=== PATIENT | male | born 1950 | race Caucasian/White ===

== ENCOUNTER 2017-08-31 13:05 | Outpatient (RCR) | payer OTHER ==
[2017-08-31 15:20] LABS: BASOPHILS % (AUTO) 1 % (0-10); EOSINOPHILS # (AUTO) 0.4 10^3/uL (0.0-0.3); EOSINOPHILS % (AUTO) 8 % (0-10); HEMATOCRIT 44 % (40-54); HEMOGLOBIN 15.4 G/DL (13.3-17.7); LYMPHOCYTES # (AUTO) 1.5 X 10^3 (1.0-4.0); LYMPHOCYTES % (AUTO) 28 % (12-44); MEAN CORPUSCULAR HEMOGLOBIN 34 PG (25-34); MEAN CORPUSCULAR HGB CONC 35 G/DL (32-36); MEAN CORPUSCULAR VOLUME 95 FL (80-99); MEAN PLATELET VOLUME 9.9 FL (7.4-10.4); MONOCYTES # (AUTO) 0.8 X 10^3 (0.0-1.0); MONOCYTES % (AUTO) 14 % (0-12); NEUTROPHILS # (AUTO) 2.6 X 10^3 (1.8-7.8); NEUTROPHILS % (AUTO) 49 % (42-75); PLATELET COUNT 174 10^3/uL (130-400); RED CELL DISTRIBUTION WIDTH 11.9 % (10.0-14.5); WHITE BLOOD COUNT 5.2 10^3/uL (4.3-11.0)
[2017-08-31 15:47] LABS: ALANINE AMINOTRANSFERASE 30 U/L (0-55); ALBUMIN 4.3 GM/DL (3.2-4.5); ALKALINE PHOSPHATASE 46 U/L (40-136); BILIRUBIN,TOTAL 0.7 MG/DL (0.1-1.0); BUN/CREATININE RATIO 10; CALCIUM 9.5 MG/DL (8.5-10.1); CARBON DIOXIDE 22 MMOL/L (21-32); CHLORIDE 106 MMOL/L (98-107); CREATININE SERUM 1.09 MG/DL (0.60-1.30); GFR ESTIMATED > 60; GLUCOSE 99 MG/DL (70-105); SODIUM 140 MMOL/L (135-145); TOTAL PROTEIN 7.1 GM/DL (6.4-8.2)
== END 2017-11-29 | disposition home or self-care (01) ==
LOC: ONC 13:05
PROVIDERS: ATTEND Internal Medicine Hematology & Oncology
DX: R79.0 Abnormal level of blood mineral (principal); I10 Essential (primary) hypertension; E78.5 Hyperlipidemia, unspecified; Z96.641 Presence of right artificial hip joint; Z79.82 Long term (current) use of aspirin; Z79.899 Other long term (current) drug therapy
CPT/HCPCS: 36415; 80053; 82728; 83540; 85025; 99214

== ENCOUNTER 2018-01-24 05:36 | Outpatient (CLI) | payer OTHER ==
[~2018-01-24] VITALS: Ht 175.3 cm; Wt 92.7 kg
[2018-01-24] MEDS ORDERED: BUDE10.2 IH (13:27)
[2018-01-24] MEDS ORDERED: LEVO5TAB12 PO (13:27)
[2018-01-24] MEDS ORDERED: ASPI-586 PO (13:27)
[2018-01-24] MEDS ORDERED: MULT-35 PO (13:27)
[2018-01-24] MEDS ORDERED: TRIA16.99 NS (13:27)
[2018-01-24] MEDS ORDERED: ATOR20TA49 PO (13:27)
[2018-01-24] MEDS ORDERED: LISI1TAB8 PO (13:27)
[2018-01-24] MEDS ORDERED: MONT10TA21 PO (13:27)
== END 2018-01-24 13:28 ==
LOC: PREOP 05:36
PROVIDERS: ATTEND Surgery
DX: Z01.818 Encounter for other preprocedural examination (principal); Z12.11 Encounter for screening for malignant neoplasm of colon; K21.9 Gastro-esophageal reflux disease without esophagitis

== ENCOUNTER 2018-01-31 09:48 | Day surgery (SDC) | payer OTHER ==
[~2018-01-31] VITALS: Ht 175.3 cm; Wt 92.7 kg
[2018-01-31] MEDS: NS IV 500 ML 500 ML IV PRN ×2 (09:45→12:00)
[~2018-01-31 09:48] MED LIST: ASPI-586 PO; ATOR20TA49 PO; BUDE10.2 IH; LEVO5TAB12 PO; LISI1TAB8 PO; MONT10TA21 PO; MULT-35 PO; TRIA16.99 NS
[2018-01-31] MEDS ORDERED: NS IV 500 ML 500 ML ONE ×2 (10:00→12:11)
--- NOTE | 2018-01-31 10:00 | Conscious Sedation/ASA ---
Conscious Sedation Pre-Proced Time Reviewed: 09:45 ASA Class: 2 Airway Mallampati Classification: (unga appropriate class) I. II. III, IV Lungs Heart ASA score ASA 1: a normal healthy patient ASA 2: a patient with a mild systemic disease (mid diabetes, controlled hypertension, obesity ASA 3: a patient with a severe systemic disease that limits activity (angina , COPD, prior Myocardial infarction) ASA 4: a patient with an incapacitating disease that is a constant threat to life (CHF, renal failure) ASA 5: a moribund patient not expected to survive 24 hrs. (ruptured aneurysm) ASA 6: a declared brain patient whose organs are being harvested. For emergent operations, add the letter E after the classification Grade 2 Sedation Plan: Analgesia, Amnesia, Plan communicated to team members, Discussed options with patient/fam, Discussed risks with patient/fam Note The patient is an appropriate candidate to undergo the planned procedure, sedation, and anesthesia. The patient immediately re-assessed prior to indication. JADA COLES MD Jan 31, 2018 10:00 am
--- NOTE | 2018-01-31 10:01 | Progress Note-Pre Operative ---
Pre-Operative Progress Note H&P Reviewed The H&P was reviewed, patient examined and no changes noted. Date Seen by Provider: Jan 31, 2018 Time Seen by Provider: 09:45 Date H&P Reviewed: Jan 31, 2018 Time H&P Reviewed: 09:45 Pre-Operative Diagnosis: GERD, screening colonoscopy JADA COLES MD Jan 31, 2018 10:01 am
[2018-01-31] MEDS ORDERED: ACETAMINOPHEN 325 MG TABLET PO PRN (10:15)
[2018-01-31] MEDS ORDERED: morphine INJ 10 MG/ML 1ML (SYR OR VIAL) IV PRN (10:15)
[2018-01-31] MEDS ORDERED: ONDANSETRON 4 MG/2 ML (SDV) Z0FRAN IV PRN (10:15)
[2018-01-31] MEDS ORDERED: HYDROcodone/APAP 5 MG/325 MG (LORTAB) TAB PO PRN (10:15)
[2018-01-31] MEDS ORDERED: MIDAZOLAM 2 MG/2 ML (VERSED) VIAL ONE ×6 (10:20→11:56)
[2018-01-31] MEDS ORDERED: fentaNYL INJECTION 100 MCG/2 ML AMP ONE ×2 (10:21→11:52)
[2018-01-31] MEDS ORDERED: LIDOCAINE JELLY 2% (XYLOCAINE) 5 ML TUBE ONE (10:21)
[2018-01-31] MEDS ORDERED: HURRICAINE EXT TUBE (BENZOCAINE) ONE (10:21)
[2018-01-31] MEDS ORDERED: HURRICAINE EXT TUBE (BENZOCAINE) XX PRN (10:30)
[2018-01-31] MEDS ORDERED: LIDOCAINE JELLY 2% (XYLOCAINE) 5 ML TUBE MM PRN (10:30)
[2018-01-31 10:33] VITALS: BP 122/60
[2018-01-31] MEDS: fentaNYL INJECTION 100 MCG/2 ML AMP IVP PRN ×4 (11:00→11:35)
[2018-01-31] MEDS: MIDAZOLAM 2 MG/2 ML (VERSED) VIAL IVP PRN ×6 (11:05→11:40)
--- OUTSIDE RECORDS SUMMARY | 2018-01-31 12:26 | XMS REPORT | Clinical Summary ---
Author Author [facility] Organization [facility] Address Unknown Phone Unavailable Care Team Providers Care Pipe Organ Mechanic Name Role Phone Sangita Prince MD PCP Tatiana Monge APRN Unavailable Ulises Méndez MD Unavailable Unavailable Ricco Berry MD Unavailable Paloma Jane RN Unavailable Unavailable Breonna Norwood MD Unavailable Gerald Banks MD Unavailable Parish Martinez MD Unavailable Source Comments Some departments are not documenting in the electronic medical record. If you do not see the information that you expected, contact Release of Information in the Health Information Management department at [phone] for further assistance in locating additional records.[facility] Allergies Active Allergy Reactions Severity Noted Date Comments Sulfamethoxazole-Trimetho STOMACH UPSET, SEE Low 08/31/2015 Incontinence. Last given prim COMMENTS 2013. Current Medications Prescription Sig. Disp. Refills Start End Date Status Date lisinopril/hydrochlorothi Take 1 Tab by mouth twice Active azide (ZESTORETIC) daily. 20/12.5 mg tablet 1 Tab atorvastatin (LIPITOR) 20 Take 20 mg by mouth at Active mg tablet bedtime daily. Levocetirizine 5 mg tab Take 1 Tab by mouth Active daily. montelukast (SINGULAIR) Take 10 mg by mouth every Active 10 mg tablet morning. budesonide/formoterol Inhale 2 Puffs by mouth Active (SYMBICORT) 160/4.5 mcg twice daily. Indications: HFAA takes PRN exercise inhalationIndications: induced mucus build up takes PRN exercise induced mucus build up triamcinolone (NASACORT) Apply 2 Sprays to each Active 55 mcg nasal inhaler nostril as directed daily. vitamins, multiple tablet Take 1 Tab by mouth Active daily. aspirin EC 81 mg tablet Take 1 Tab by mouth every 09/05/19 Active morning. WAIT to resume 16 until after you complete 42 days of the full strength aspirin 325mg. Active Problems Problem Noted Date Disp assoc transvrs-posterior fx of right acetabulum with routine heal 10/18 Pelvic fracture (HCC) 08/31/2015 Immunizations Name Dates Previously Given Next Due Pneumococcal Vaccine 09/03/2015 (23-Glo Adult) Social History Tobacco Use Types Packs/Day Years Used Date Never Smoker Alcohol Use Drinks/Week oz/Week Comments Yes 7 Glasses of 4.2 wine Sex Assigned at Date Recorded Not on file Last Filed Vital Signs Vital Sign Reading Time Taken Blood Pressure 152/76 08/31/2016 12:22 PM SITE LEAD Pulse 64 08/31/2016 12:22 PM SITE LEAD Temperature 37.1 C (98.8 F) 09/05/2015 2:53 PM SITE LEAD Respiratory Rate - - Oxygen Saturation 99% 09/05/2015 2:53 PM SITE LEAD Inhaled Oxygen - - Concentration Weight 89.8 kg (198 lb) 08/31/2016 12:22 PM SITE LEAD Height 167.6 cm (5' 5.98") 08/31/2016 12:22 PM SITE LEAD Body Mass Index 31.97 08/31/2016 12:22 PM SITE LEAD Plan of Treatment Health Maintenance Due Date Last Done Comments HEPATITIS C SCREENING 1949 PHYSICAL (COMPREHENSIVE) 1956 EXAM PERTUSSIS VACCINE 1960 TETANUS VACCINE 1966 COLORECTAL CANCER 1999 SCREENING SHINGLES RECOMBINANT 1999 VACCINE (1 of 2) PNEUMONIA (PCV13/PPSV23) 09/02/2016 09/03/2015 VACCINES (2 of 2 - PCV13) INFLUENZA VACCINE 04/02/2018 Implants Implanted Type Area Senior Property Accountant Device Expiration Model / Identifier Date Serial / Lot Linr Actb Pncl +4 Ntrl 60mm 40 Right: Hip JandJ:DEPUY:DEP 03/01/2017 [id number] Implanted: Qty: 1 on 09/01/2015 by CHE TERRAZAS / Gerald Banks MD NA / NA Scr Bn 3.5mm 60mm Ss Javon Plvc Right: Hip SYNTHES:SYNTHES [id number] Implanted: Qty: 1 on 09/01/2015 by Gerald Villavicencio MD NA / NA Scr Bn 3.5mm 75mm Ss Javon Plvc Right: Hip SYNTHES:SYNTHES [id number] Implanted: Qty: 1 on 09/01/2015 by Gerald Villavicencio MD NA / NA Plt 117mm Ss 3.5mm Scr 9 Hl Right: Hip SYNTHES:SYNTHES 02.100.109 Implanted: Qty: 1 on 09/01/2015 by Gerald Villavicencio MD NA / NA Scr Actb Gription 25mm 6.5mm Right: Hip JandJ:DEPUY:DEP 07/02/2025 [id number] Implanted: Qty: 1 on 09/01/2015 by CHE [employer]RAZ[employer] / Gerald Banks MD NA / NA Shl Actb 60mm Hip Sect Prct Right: Hip JandJ:DEPUY:DEP 06/01/2025 [id number] Implanted: Qty: 1 on 09/01/2015 by CHE TERRAZ[employer] / Gerald Banks MD NA / NA Elmntr Hl Drlc Pncl Hip Mrthn Right: Hip JandJ:DEPUY:DEP 06/01/2025 [id number] Implanted: Qty: 1 on 09/01/2015 by CHE TERRAZAS / Gerald Banks MD NA / NA Stem Fem Cmntls Smt Prct 6 Right: Hip JandJ:DEPUY:DEP 07/02/2025 [id number] Implanted: Qty: 1 on 09/01/2015 by CHE TERRAZ[employer] / Gerald Banks MD NA / NA Head Fem +1.5mm /14 Tpr 40mm Right: Hip JandJ:DEPUY:DEP 12/31/2019 [id number] Implanted: Qty: 1 on 09/01/2015 by CHE TERRAZAS / Gerald Banks MD NA / NA Scr Bn 3.5mm 6mm 34mm Lcp Ss T Right: Hip SYNTHES:SYNTHES .[id number] Implanted: Qty: 1 on 09/01/2015 by STAR / Gerald Banks MD NA / NA Scr Bn 3.5mm 45mm Ss Javon Plvc Right: Hip SYNTHES:SYNTHES .045 Implanted: Qty: 1 on 09/01/2015 by [employer]AR / Gerald Banks MD NA / NA Scr Bn 3.5mm 6mm 50mm Lcp Ss T Right: Hip SYNTHES:SYNTHES .050 Implanted: Qty: 1 on 09/01/2015 by [employer] / Gerald Banks MD NA / NA Results Not on filefrom Last 3 Months
--- NOTE | 2018-01-31 12:29 | Progress Note-Post Operative ---
Post-Operative Progess Note Surgeon (s)/Sample Maker Hand (s) Surgeon JADA COLES MD Sample Maker Hand: none Pre-Operative Diagnosis GERD, screening colonoscopy Post-Operative Diagnosis reflux esophagitis(class B), small HH(1.5cm), mild gastritis. chronic stage 2 ext and int hemorrhoids, moderate sigmoid diverticulosis. Procedure & Operative Findings Date of Procedure 01/31/18 Procedure Performed/Findings EGD with bx. Colonoscopy. Anesthesia Type CS Estimated Blood Loss Estimated blood loss (mL): minimal Specimens/Packing Specimens Removed GE jxn, antrum. JADA COLES MD Jan 31, 2018 12:29 pm
[2018-01-31] MEDS ORDERED: PANT40TA2 PO (12:31)
--- NOTE | 2018-01-31 12:33 | Discharge Inst-Surgical ---
D/C Lap Instructions-KIDO New, Converted, or Re-Newed RX: RX on Chart Follow Up 10 years or PRN Activity as tolerated High Fiber Diet 25g or more per day Avoid Alcohol, Caffeine, Spicy [place] and Acid foods. Drink 64 fluid oz or more of fluids per day. Symptoms to Report: Fever over 101 degree F, Nausea/Vomiting If any problems/questions: Contact your physician or go to Emergency Room JADA COLES MD Jan 31, 2018 12:33 pm
[2018-01-31 12:35] VITALS: BP 121/59
[2018-01-31 13:15] VITALS: BP 117/65
--- NOTE | 2018-01-31 14:53 | OPERATIVE REPORT ---
DATE OF SERVICE: 01/31/2018 ATTENDING PRIMARY CARE PHYSICIAN: Sangita Prince MD PREOPERATIVE DIAGNOSIS: Gastroesophageal reflux disease, screening colonoscopy. POSTOPERATIVE DIAGNOSES: Reflux esophagitis class B, small hiatal hernia approximately 1.5 cm in size. Mild gastritis. Chronic stage II external and internal hemorrhoids, moderate sigmoid diverticulosis. PROCEDURE: EGD with biopsy, colonoscopy. SURGEON: Jada Coles MD ANESTHESIA: Conscious sedation. ESTIMATED BLOOD LOSS: Minimal. FINDINGS: EGD, reflux esophagitis class B, small hiatal hernia approximately 1.5 cm in size. Mild gastritis. No ulcers, polyps or any neoplasms. Pylorus and duodenum appeared normal. Colonoscopy, chronic stage II external and internal hemorrhoids, not actively edematous nor inflamed and no bleeding. Moderate sigmoid diverticulosis, no polyps identified. DISPOSITION: The patient tolerated the procedure well. INDICATIONS: The patient is a 67-year-old male who is in need of a screening colonoscopy. His last colonoscopy was approximately 10 years ago, and he states that he cannot remember any abnormalities at this time. He does report a longstanding history of constipation and may not have a bowel movement for several days and he does have hard formed stools a lot of times. He also has a history of gastroesophageal reflux disease with epigastric burning sensation, not relieved by taking [id number] antacids. He does report that this is worse when he does take in spicy, greasy or ascitic foods. DESCRIPTION OF PROCEDURE: The patient was brought to the endoscopy suite, laid in left lateral decubitus position. After adequate IV pain and sedating medications and conscious sedation anesthesia, the mouthpiece was applied. The endoscope was placed in the mouth, visualizing the pharynx and hypopharyngeal region. Vocal cords, epiglottis and vallecula and identified and appeared to be normal. The endoscope was then gently intubated at the esophageal opening and esophagus insufflated. The endoscope was then advanced to the first, second and third portion of the esophagus at the level of the GE junction, a reflux esophagitis class B identified. There were no ulcerations or strictures identified in this region. A biopsy was taken with forceps with visualization of good hemostasis. The endoscope was then advanced into the stomach and the endoscope retroflexed, visualizing a small hiatal hernia approximately 1.5 cm in size. There was a mild severity gastritis. There are no ulcers, polyps or any neoplasms identified throughout the stomach. The endoscope was then advanced to the pylorus and the first and second portion of the duodenum, which appeared normal with no distal obstructions. The endoscope was then withdrawn when taking second look and suctioning of residual air with no additional findings. The patient tolerated this portion of the procedure well. For his reflux esophagitis, small hiatal hernia as well as mild gastritis, we will recommend the necessary lifestyle and diet accommodation including small and more frequent meals, avoidance of eating at night as well as head elevation while lying supine. He also needs to avoid caffeinated beverages, spicy, greasy and acidic foods. We will also recommend start him on Protonix 40 mg on a daily basis. Under the same conscious sedation anesthesia, we then proceeded with colonoscopy portion of the procedure. A digital rectal examination was performed, which revealed chronic stage II external and internal hemorrhoids, not actively edematous nor inflamed and no bleeding. Normal sphincter tone was felt and there were no palpable masses. Prostate gland was palpable and appeared normal. The endoscope was then intubated to the anus and the rectum gently insufflated. The endoscope was then advanced to the valves of Pereira of the rectum with no polyps or any neoplasms identified. The endoscope was then advanced through the sigmoid colon where a moderate sigmoid diverticulosis identified. There were no mucosal inflammatory changes to indicate any active diverticulitis. The endoscope was then advanced to the remainder of the descending, transverse and ascending colon to the cecum. These segments are normal. There were no polyps or any neoplasms identified throughout the colon or rectum. The endoscope was then slowly withdrawn while taking a second look and suctioning residual air with no additional findings. The patient tolerated the procedure well. We will recommend a high fiber diet with at least 30 grams of fiber per day as well as copious amounts of water with the end point being soft stools with minimal form at least once a day. He does not need another colonoscopy for another 10 years; however, sooner if he becomes symptomatic. Job ID: [id number] DocumentID: [id number] Dictated Date: 01/31/2018 12:35:46 Associate Program Manager Date: 01/31/2018 14:52:52 Dictated By: JADA COLES MD
[2018-01-31 15:32] VITALS: BP 117/65
== END 2018-01-31 13:20 | disposition home or self-care (01) ==
LOC: ENDO 09:48
PROVIDERS: ATTEND Surgery
DX: Z12.11 Encounter for screening for malignant neoplasm of colon (principal); K21.0 Gastro-esophageal reflux disease with esophagitis; K44.9 Diaphragmatic hernia without obstruction or gangrene; K29.70 Gastritis, unspecified, without bleeding; K57.30 Diverticulosis of large intestine without perforation or abscess without bleeding; K64.1 Second degree hemorrhoids; E78.00 Pure hypercholesterolemia, unspecified; I10 Essential (primary) hypertension; Z79.82 Long term (current) use of aspirin; Z79.899 Other long term (current) drug therapy